=== PATIENT | female | born 1970 ===

== ENCOUNTER → 2021-08-12 10:59 | Outpatient (CLI) | payer OTHER, SELFPAY ==
[2021-08-12 13:35] LABS: COVID19 -Nasal RAPID Negative (Negative)
== END ==
PROVIDERS: Family Provider Family Medicine; PCP Family Medicine; Referring Provider Internal Medicine; Visit Provider Internal Medicine
DX: Z20.822 Contact with and (suspected) exposure to COVID-19 (principal)
CPT/HCPCS: 87635; C9803

== ENCOUNTER → 2021-08-12 11:01 | Outpatient (CLI) | payer OTHER, SELFPAY ==
--- NOTE | 2021-08-17 07:40 | PM.PFT.1 ---
Pulmonary Function Test Referral & Results Date Patient Seen: 08/12/21 Requesting provider: Lindsey Maxwell Results: The spirometry demonstrates an FVC of 2.33 L which is 78% of predicted. The FEV1 was measured at 1.94 L which is 82% of predicted. The FEV1/FVC ratio was 83 which is 103% of predicted. Following the administration of bronchodilator there was no notable change Lung volumes show an SVC of 2.35 L which is 84% of predicted. The diffusing capacity was measured at 20.18 which is 115% of predicted. The maximum voluntary ventilation was minimally reduced Interpretation: This study demonstrates probably normal spirometry normal diffusing capacity Overall this study demonstrates normal pulmonary function
== END ==
PROVIDERS: Family Provider Family Medicine; PCP Family Medicine; Referring Provider Family Medicine; Visit Provider Family Medicine
DX: R06.02 Shortness of breath (principal); Z20.822 Contact with and (suspected) exposure to COVID-19; J98.8 Other specified respiratory disorders
CPT/HCPCS: 87635; 94060; 94726; 94729; C9803